=== PATIENT | female | born 1940 | race Caucasian/White ===

== ENCOUNTER 2018-03-09 10:22 | Inpatient (IN) | payer MEDICARE ==
[~2018-03-09] VITALS: Ht 154.9 cm; Wt 80.9 kg
[~2018-03-09 10:22] MED LIST: AVAPRO300 MG PO; BUSPIRONE HCL10 MG PO; CATAPRES0.1 MG; CEFTIN500 MG PO; CYMBALTA30 MG PO; DONEPEZIL HCL10 MG PO; OMEPRAZOLE20 MG PO; SIMVASTATIN40 MG PO; VALACYCLOVIR1000 MG
[2018-03-09] MEDS ORDERED: SODIUM CHLORIDE 0.9% 500ML 500 ML IV STA (10:24)
[2018-03-09] MEDS ORDERED: ASPIRIN 81 MG CHEW TAB PO ONE ×2 (10:30→14:15)
[2018-03-09 10:50] LABS: BASOPHILS % 0.6 % (0.0-1.0); EOSINOPHILS # (AUTO) 0.2 (0.0-0.4); EOSINOPHILS % 2.6 % (0.0-6.0); HEMOGLOBIN 11.1 g/dL (12.0-16.0); LYMPHOCYTES # (AUTO) 1.4 (1.0-3.2); MEAN CORPUSCULAR HEMOGLOBIN 30.2 pg (28-32); MEAN CORPUSCULAR HGB CONC 32.6 g/dL (31-35); MEAN CORPUSCULAR VOLUME 92.6 fL (81-99); MONOCYTES # (AUTO) 0.6 (0.2-0.8); MONOCYTES % 10.3 % (4.4-11.3); NEUTROPHILS % 64.2 % (38.7-80.0); PLATELET COUNT 312 x10e3/uL (140-360); RED BLOOD COUNT 3.67 x10e6/uL (3.6-5.1); RED CELL DISTRIBUTION WIDTH 13.1 % (11.7-14.4)
[2018-03-09 11:08] LABS: INR 0.84; PROTHROMBIN TIME 12.3 seconds (11.9-14.5)
[2018-03-09 11:09] LABS: PARTIAL THROMBOPLASTIN TIME 21.3 seconds (23.8-35.5)
--- NOTE | 2018-03-09 11:41 | Diagnostic Imaging Report ---
EXAMINATION: Head CT HISTORY: Syncope COMPARISON: Head CT on 10/19/2013 TECHNIQUE: Multidetector axial images were obtained without contrast from the foramen magnum to the vertex . The images were reconstructed using brain and bone algorithms. Thin section brain images were reformatted into coronal and sagittal planes. Intravenous contrast: None. Image quality: Motion/streaking artifact limits the evaluation of the skull base and posterior cranial fossa. Dose modulation, iterative reconstruction, and/or weight based adjustment of the mA/kV was utilized to reduce the radiation dose to as low as reasonably achievable. FINDINGS: Parenchyma: 1. Persistent mild chronic microvascular ischemic changes. 2. No mass or hemorrhage. No CT evidence of acute territorial vascular insult. Extra-axial spaces:No abnormal density. No extra-axial fluid collections Brain volume: Normal for age. Ventricles: No hydrocephalus or displacement. Arteries: No density suggestive of thrombus. Dural sinuses: No abnormal density. Extra-axial spaces: No abnormal density. Foramen magnum: No mass, Chiari malformation, or basilar invagination. Sella: No obvious mass. Paranasal/mastoid sinuses: Imaged portions unremarkable. Skull/Scalp: No lytic or blastic lesions. No fractures. IMPRESSION: 1. No acute intracranial hemorrhage or cortical infarct. 2. Persistent mild chronic microvascular ischemic changes. Signed by: Dr. Isadora Jameson M.D. on 03/09/2018 11:38 AM
[2018-03-09 11:45] LABS: ALANINE AMINOTRANSFERASE 27 IU/L (0-55); ALBUMIN 3.2 g/dL (3.5-5.0); ALBUMIN/GLOBULIN RATIO 1.1 (0.8-2.0); ALKALINE PHOSPHATASE 60 IU/L (40-150); BLOOD UREA NITROGEN 25 mg/dL (7-26); BUN/CREATININE RATIO 23 (6-25); CALCIUM 9.3 mg/dL (8.4-10.2); CARBON DIOXIDE 23 mmol/L (22-29); CHLORIDE 105 mmol/L (98-107); CREATINE KINASE 50 IU/L (29-168); CREATININE, SERUM 1.07 mg/dL (0.57-1.11); EST GLOMERULAR FILTRATION RATE 50 ML/MIN (60-); GLUCOSE 113 mg/dL (74-118); LIPASE 21 U/L (8-78); MAGNESIUM 1.9 MG/DL (1.3-2.1); SODIUM 141 mmol/L (136-145)
[2018-03-09] MEDS ORDERED: SODIUM CHLORIDE 0.9% 500ML 500 ML IV ONE (12:00)
[2018-03-09] MEDS ORDERED: VITAMIN E400 UNI1 PO (12:04)
[2018-03-09] MEDS ORDERED: SERTRALINE HCL50 MG PO (12:04)
[2018-03-09] MEDS ORDERED: ASPIR 8181 MG PO (12:04)
[2018-03-09] MEDS ORDERED: GABAPENTIN100 MG PO ×2 (12:05)
--- NOTE | 2018-03-09 12:08 | Diagnostic Imaging Report ---
Examination: Single AP view of the chest. COMPARISON: None. INDICATION: Altered mental status, passed out DISCUSSION: Lines/tubes: None. Lungs: The lungs are well inflated and clear. No pneumonia or pulmonary edema. Pleura: No pleural effusion or pneumothorax. Heart and mediastinum: The heart and the mediastinum are unremarkable. Bones and soft tissues: No acute bony abnormalities. IMPRESSION: 1. No acute cardiopulmonary abnormalities. Signed by: Dr. Perico Bridges M.D. on 03/09/2018 12:05 PM
[2018-03-09 12:18] LABS: BILIRUBIN,URINE NEGATIVE (NEGATIVE); CLARITY,URINE SL CLOUDY (CLEAR); COLOR,URINE YELLOW (YELLOW); KETONES,URINE NEGATIVE (NEGATIVE); LEUKOCYTE ESTERASE ,URINE 2+ (NEGATIVE); NITRITE,URINE NEGATIVE (NEGATIVE); PROTEIN,URINE DIPSTICK 1+ (NEGATIVE); URINE UROBILINOGEN 0.2 mg/dL (0.2 - 1)
[2018-03-09 12:21] LABS: BACTERIA,URINE MODERATE /HPF; EPITHELIAL CELLS,URINE MODERATE /LPF; WBC,URINE (MAN) >50 /HPF (0-5)
[2018-03-09 12:22] LABS: THYROID STIMULATING HORMONE 2.609 uIU/mL (0.350-4.940)
[2018-03-09] MEDS: CEFTRIAXONE SOD 1 GM VIAL IV SCH (13:00)
[2018-03-09] MEDS ORDERED: ONDANSETRON HCL INJ 2 MG/ML VIAL IV PRN (14:15)
[2018-03-09] MEDS: SODIUM CHLORIDE 0.9% 1000ML 1,000 ML IV SCH (15:04)
[2018-03-09 20:00] VITALS: BP 108/47
[2018-03-09 20:42] LABS: CREATINE KINASE 51 IU/L (29-168)
[2018-03-10] VITALS (8 sets, daily range): BP systolic 135–149; BP diastolic 61–65
[2018-03-10] MEDS: SODIUM CHLORIDE 0.9% 1000ML 1,000 ML IV SCH ×2 (03:15→17:16)
[2018-03-10 05:57] LABS: ALANINE AMINOTRANSFERASE 25 IU/L (0-55); ALBUMIN 2.8 g/dL (3.5-5.0); ALBUMIN/GLOBULIN RATIO 1.2 (0.8-2.0); ALKALINE PHOSPHATASE 51 IU/L (40-150); ANION GAP 12.2 mmol/L (8-16); BLOOD UREA NITROGEN 18 mg/dL (7-26); BUN/CREATININE RATIO 24 (6-25); CALCIUM 8.7 mg/dL (8.4-10.2); CARBON DIOXIDE 24 mmol/L (22-29); CHLORIDE 110 mmol/L (98-107); CREATINE KINASE 52 IU/L (29-168); CREATININE, SERUM 0.74 mg/dL (0.57-1.11); EST GLOMERULAR FILTRATION RATE > 60 ML/MIN (60-); GLUCOSE 95 mg/dL (74-118); POTASSIUM 4.2 mmol/L (3.5-5.1); SODIUM 142 mmol/L (136-145)
[2018-03-10 06:18] LABS: BASOPHILS % 0.5 % (0.0-1.0); EOSINOPHILS # (AUTO) 0.2 (0.0-0.4); EOSINOPHILS % 3.2 % (0.0-6.0); HEMATOCRIT 30.5 % (34.2-44.1); HEMOGLOBIN 9.5 g/dL (12.0-16.0); LYMPHOCYTES # (AUTO) 1.3 (1.0-3.2); LYMPHOCYTES % 21.3 % (18.0-39.1); MEAN CORPUSCULAR HEMOGLOBIN 29.8 pg (28-32); MEAN CORPUSCULAR HGB CONC 31.1 g/dL (31-35); MEAN CORPUSCULAR VOLUME 95.6 fL (81-99); MONOCYTES # (AUTO) 0.6 (0.2-0.8); MONOCYTES % 10.2 % (4.4-11.3); NEUTROPHILS % 64.3 % (38.7-80.0); PLATELET COUNT 249 x10e3/uL (140-360); RED BLOOD COUNT 3.19 x10e6/uL (3.6-5.1); RED CELL DISTRIBUTION WIDTH 13.2 % (11.7-14.4)
[2018-03-10] MEDS ORDERED: NON-FORMULARY MEDICATION (Donepezil Hcl 10 MG) PO SCH (09:00)
[2018-03-10] MEDS: ASPIRIN 81 MG CHEW TAB PO SCH (09:58)
[2018-03-10] MEDS: GABAPENTIN 100 MG CAP PO SCH (09:58)
[2018-03-10] MEDS: SERTRALINE HCL 50 MG TAB PO SCH (09:58)
[2018-03-10] MEDS: PANTOPRAZOLE SOD 40 MG TABEC PO SCH (09:58)
[2018-03-10] MEDS: DONEPEZIL HCL 5 MG TAB PO SCH (11:43)
[2018-03-10] MEDS: CEFTRIAXONE SOD 1 GM VIAL IV SCH (11:45)
--- NOTE | 2018-03-10 12:27 | History and Physical ---
PRIMARY CARE PHYSICIAN: . CHIEF COMPLAINT: Near passing out. HISTORY OF PRESENT ILLNESS: This is a 77-year-old woman with a history of dementia and presyncope, now [facility] History was obtained from the patient's daughter, who states that patient's son-in-law was with her at [facility]. Patient subsequently headed on to the chair while standing and put her head down as if she was okay. She did not respond and subsequently as he tried to place a chair behind her, patient sat down and almost passed out but did not lose consciousness. This occurred three or four more times and brought in to the hospital. Here this patient found to have urinary tract infection. Imaging have been negative to date. Today echocardiogram done was normal left ventricular ejection fraction. She is admitted for further evaluation and management. PAST MEDICAL HISTORY: Dementia, arthritis, bradycardia, shingles, GERD, and hypertension. PAST SURGICAL HISTORY: Knee surgery. ALLERGIES: PER ELECTRONIC MEDICAL RECORD. FAMILY HISTORY AND SOCIAL HISTORY: The patient is . She has 4 children. No alcohol, illicits or cigarettes. MEDICATIONS: Per electronic medical record. REVIEW OF SYSTEMS: Unreliable. PHYSICAL EXAMINATION VITAL SIGNS: Have been reviewed. GENERAL: A tired-appearing woman, resting in bed. HEENT: Anicteric. CARDIOVASCULAR: Normal S1 and S2. LUNGS: Moderate breath sounds. ABDOMEN: Soft, nontender, and nondistended. EXTREMITIES: No edema or calf tenderness. NEUROLOGIC: Alert and oriented x2. She moves all the extremities. SKIN: Dry. PSYCHIATRIC: Flat affect. LABS: Reviewed. MEDICATIONS: Reviewed. ASSESSMENT: This is a 77-year-old woman 1. Urinary tract infection. 2. Dementia. 3. Presyncope. 4. Hyperlipidemia. 5. Normocytic anemia. 6. Acute kidney injury. 7. Obesity. PLAN 1. Rehydrate the patient. 2. IV antibiotics. 3. Followup culture. 4. Might have a confusion at nighttime due to dementia. 5. Restart home medications. 6. Monitor closely overnight. Plan to discharge next day after she has been rehydrated and receive antibiotics and follow up culture. 7. Utilize Protonix and Lovenox for prophylaxis. Job#: [id number] ANGEL
[2018-03-10] MEDS ORDERED: ENOXAPARIN SOD INJ 40 MG/0.4 ML SYR SC SCH (17:00)
[2018-03-10] MEDS ORDERED: SIMVASTATIN 40 MG TAB PO SCH (21:00)
[2018-03-10] MEDS ORDERED: GABAPENTIN 100 MG CAP PO SCH (21:00)
[2018-03-11] VITALS: BP 142/57
[2018-03-11 05:10] VITALS: BP 151/60
[2018-03-11] MEDS ORDERED: KEFLEX500 MG PO (07:22)
[2018-03-11 07:56] VITALS: BP 149/55
[2018-03-11] MEDS: ASPIRIN 81 MG CHEW TAB PO SCH (08:08)
[2018-03-11] MEDS: DONEPEZIL HCL 5 MG TAB PO SCH (08:08)
[2018-03-11] MEDS: GABAPENTIN 100 MG CAP PO SCH (08:08)
[2018-03-11] MEDS: PANTOPRAZOLE SOD 40 MG TABEC PO SCH (08:08)
[2018-03-11] MEDS: SERTRALINE HCL 50 MG TAB PO SCH (08:08)
--- NOTE | 2018-03-11 08:24 | Discharge Summary ---
PRINCIPAL DIAGNOSES 1. Urinary tract infection. 2. Dementia. 3. Presyncope. 4. Hyperlipidemia. 5. Normocytic anemia. 6. Acute kidney injury. 7. Obesity. SECONDARY DIAGNOSIS: Dementia. CHIEF COMPLAINT: Near passing out. BRIEF HISTORY: Patient is a 77-year-old with near passing out. Please refer to H\T\P for further details. HOSPITAL COURSE: Patient was found to have urinary tract infection, started on antibiotic ceftriaxone. She had gram-negative rods in urine. Patient's daughter has continued to request discharge home including the patient has also requested discharge home. There is no leukocytosis, fever, or hypotension. Patient can be transitioned home with Keflex and follow up outpatient with Dr. Shi for continued care. She also had presyncope related to the urinary tract infection, normocytic anemia, and acute kidney injury, which has resolved and obesity. DISCHARGE MEDICATIONS: Per electronic medical records. Discharge medications include Keflex 500 mg p.o. q.12h. for 5 days. FOLLOWUP INSTRUCTIONS: Follow up with primary care physician in one week. CONDITION ON DISCHARGE: Stable and improved. DISCHARGE LOCATION: Home with physical therapy. ZAINAB SEGOVIA MD Job#: [id number] PARTHA
--- OUTSIDE RECORDS SUMMARY | 2018-03-21 10:46 | XMS REPORT ---
Author [facility] Address Unknown Phone Unavailable Care Team Providers Care Stem Roller Name Role Phone Gilberto DAWSON Unavailable Unavailable Problems This patient has no known problems. Allergies, Adverse Reactions, Alerts This patient has no known allergies or adverse reactions. Medications This patient has no known medications. Results Test Description Test Time Test Comments Text Results Atomic Results Result Comments CHEST SINGLE (PORTABLE) 2018-03-09 12:04:00 [place] [address] Patient Name: SHERICE ALLEN MR #: [id number] : 1940 Age/Sex: 77/F Req #: [id number] Adm Physician: Ordered by: JASWANT GILLIS SURGICAL SUPPLY ASSISTANT Report #: [id number] Location: ER Room/Bed: Procedure: [id number] DX/CHEST SINGLE (PORTABLE) Exam Date: Exam Time: REPORT STATUS: Signed Examination: Single AP view of the chest. COMPARISON: None. INDICATION: Altered mental status, passed out DISCUSSION: Lines/tubes: None. Lungs: The lungs are well inflated and clear. No pneumonia or pulmonary edema. Pleura: No pleural effusion or pneumothorax. Heart and mediastinum: The heart and the mediastinum are unremarkable. Bones and soft tissues: No acute bony abnormalities. IMPRESSION: 1. No acute cardiopulmonary abnormalities. Signed by: Dr. Kofi Hamlin M.D. on 03/09/2018 12:05 PM Dictated By: KOFI HAMLIN MD 1205 Transcribed By: IGLESIA on 03/09/18 1205 COPY TO: JASWANT GILLIS NP CT BRAIN WO 2018-03-09 11:37:00 [place] [address] Patient Name: SHERICE ALLEN MR #: [id number] : 1940 Age/Sex: 77/F Req #: [id number] Adm Physician: Ordered by: JASWANT GILLIS NP Report #: [id number] Location: ER Room/Bed: Procedure: [id number] CT/CT BRAIN WO Exam Date: 03/09/18 Exam Time: 1110 REPORT STATUS: Signed EXAMINATION: Head CT HISTORY: Syncope COMPARISON: Head CT on 10/19/2013 TECHNIQUE: Multidetector axial images were obtained without contrast from the foramen magnum to the vertex . The images were reconstructed using brain and bone algorithms. Thin section brain images were reformatted into coronal and sagittal planes. Intravenous contrast: None. Image quality: Motion/streaking artifact limits the evaluation of the skull base and posterior cranial fossa. Dose modulation, iterative reconstruction, and/or weight based adjustment of the mA/kV was utilized to reduce the radiation dose to as low as reasonably achievable. FINDINGS: Parenchyma: 1. Persistent mild chronic microvascular ischemic changes. 2. No mass or hemorrhage. No CT evidence of acute territorial vascular insult. Extra-axial spaces:No abnormal density. No extra-axial fluid collections Brain volume: Normal for age. Ventricles: No hydrocephalus or displacement. Arteries: No density suggestive of thrombus. Dural sinuses: No abnormal density. Extra-axial spaces: No abnormal density. Foramen magnum: No mass, Chiari malformation, or basilar invagination. Sella: No obvious mass. Paranasal/mastoid sinuses: Imaged portions unremarkable. Skull/Scalp: No lytic or blastic lesions. No fractures. IMPRESSION: 1. No acute intracranial hemorrhage or cortical infarct. 2. Persistent mild chronic microvascular ischemic changes. Signed by: Dr. Deb Jameson M.D. on 03/09/2018 11:38 AM Dictated By: DEB JAMESON MD 1138 Transcribed By: IGLESIA on 03/09/181137 COPY TO: JASWANT GILLIS NP
== END 2018-03-11 10:39 | disposition home or self-care (01) | DRG 683 ==
LOC: ER 10:22 → ERHOLD 14:04 → MED/SURG3 17:06
PROVIDERS: ADMIT Internal Medicine; ATTEND Internal Medicine
DX: N17.9 Acute kidney failure, unspecified (principal); N39.0 Urinary tract infection, site not specified; F03.90 Unspecified dementia, unspecified severity, without behavioral disturbance, psychotic disturbance, mood disturbance, and anxiety; E78.5 Hyperlipidemia, unspecified; E66.9 Obesity, unspecified; Z68.33 Body mass index [BMI] 33.0-33.9, adult; D64.9 Anemia, unspecified; B96.89 Other specified bacterial agents as the cause of diseases classified elsewhere
CPT/HCPCS: 36415; 51700; 70450; 71045; 80053; 81001; 82550; 82553; 83605; 83690; 83735; 84443; 84484; 85025; 85610; 85730; 87086; 87186; 93005; 93306; 99284; J0696; J1650; J7030; J7040

== ENCOUNTER 2021-06-22 16:25 | Emergency (ER) | payer MEDICARE ==
[~2021-06-22] VITALS: Ht 152.4 cm; Wt 72.6 kg
[~2021-06-22 16:25] MED LIST changes: +ASPIR 8181 MG PO; +GABAPENTIN100 MG PO; +KEFLEX500 MG PO; +SERTRALINE HCL50 MG PO; +VITAMIN E400 UNI1 PO
[2021-06-22] MEDS ORDERED: CEFTRIAXONE 1 GM VIAL IV ONE (17:00)
[2021-06-22] MEDS ORDERED: CEFDINIR300 MG PO (17:07)
[2021-06-22] MEDS ORDERED: CEFTRIAXONE 1 GM VIAL ONE (17:18)
[2021-06-22] MEDS ORDERED: CEFTRIAXONE 1 GM in SODIUM CHLORIDE 0.9% 50ML 50 ML IV ONE (17:30)
== END 2021-06-22 17:36 | disposition home or self-care (01) ==
LOC: FSED 16:32
DX: R41.82 Altered mental status, unspecified (principal); N39.0 Urinary tract infection, site not specified; F03.90 Unspecified dementia, unspecified severity, without behavioral disturbance, psychotic disturbance, mood disturbance, and anxiety; I10 Essential (primary) hypertension; K21.9 Gastro-esophageal reflux disease without esophagitis; F41.9 Anxiety disorder, unspecified; E78.00 Pure hypercholesterolemia, unspecified
CPT/HCPCS: 80053; 81003; 85025; 99283; J0696

== ENCOUNTER 2021-06-26 12:39 | Emergency (ER) | payer MEDICARE ==
[~2021-06-26] VITALS: Ht 154.9 cm; Wt 72.6 kg
[~2021-06-26 12:39] MED LIST changes: +CEFDINIR300 MG PO
[2021-06-26] MEDS ORDERED: SODIUM CHLORIDE 0.9% 1000ML 1,000 ML IV SCH (13:00)
[2021-06-26] MEDS ORDERED: CEFTRIAXONE 1 GM VIAL IM ONE (13:00)
[2021-06-26] MEDS ORDERED: CEFTRIAXONE 1 GM in SODIUM CHLORIDE 0.9% 50ML 50 ML IV ONE (13:15)
[2021-06-26] MEDS ORDERED: SODIUM CHLORIDE 0.9% 1000ML 500 ML IV SCH (13:59)
[2021-06-26 14:46] LABS: ALBUMIN 3.4 g/dL (3.5-5.0); ANION GAP 15.3 mmol/L (8-16); CALCIUM 9.7 mg/dL (8.4-10.2); CREATININE, SERUM 0.84 mg/dL (0.57-1.11); POTASSIUM 4.3 mmol/L (3.5-5.1)
[2021-06-26 14:59] LABS: BASOPHILS % 0.6 % (0.0-1.0); EOSINOPHILS # (AUTO) 0.4 (0.0-0.4); EOSINOPHILS % 5.3 % (0.0-6.0); HEMATOCRIT 42.5 % (34.2-44.1); HEMOGLOBIN 13.1 g/dL (12.0-16.0); LYMPHOCYTES # (AUTO) 1.3 (1.0-3.2); LYMPHOCYTES % 20.1 % (18.0-39.1); MEAN CORPUSCULAR HEMOGLOBIN 32.3 pg (28-32); MEAN CORPUSCULAR HGB CONC 30.8 g/dL (31-35); MEAN CORPUSCULAR VOLUME 104.7 fL (81-99); MONOCYTES # (AUTO) 0.7 (0.2-0.8); MONOCYTES % 10.3 % (4.4-11.3); NEUTROPHILS # (AUTO) 4.2 (2.1-6.9); NEUTROPHILS % 63.5 % (38.7-80.0); PLATELET COUNT 276 x10e3/uL (140-360); RED BLOOD COUNT 4.06 x10e6/uL (3.6-5.1)
[2021-06-26 15:28] LABS: CLARITY,URINE CLEAR (CLEAR); COLOR,URINE YELLOW (YELLOW); KETONES,URINE NEGATIVE (NEGATIVE); LEUKOCYTE ESTERASE ,URINE NEGATIVE (NEGATIVE); NITRITE,URINE NEGATIVE (NEGATIVE); PROTEIN,URINE DIPSTICK NEGATIVE (NEGATIVE); URINE UROBILINOGEN 0.2 mg/dL (0.2 - 1)
[2021-06-26 15:39] LABS: BACTERIA,URINE FEW /HPF; EPITHELIAL CELLS,URINE FEW /LPF; RBC,URINE 0-5 /HPF (0-5); WBC,URINE (MAN) 21-50 /HPF (0-5)
[2021-06-26 18:17] VITALS: BP 133/76
== END 2021-06-26 18:00 | disposition home or self-care (01) ==
LOC: ER 12:46
DX: N39.0 Urinary tract infection, site not specified (principal); F03.90 Unspecified dementia, unspecified severity, without behavioral disturbance, psychotic disturbance, mood disturbance, and anxiety; I10 Essential (primary) hypertension; K21.9 Gastro-esophageal reflux disease without esophagitis; F41.9 Anxiety disorder, unspecified; E78.00 Pure hypercholesterolemia, unspecified
CPT/HCPCS: 36415; 71045; 80053; 81001; 83605; 84484; 85025; 87040; 87086; 93005; 99284; J0696; J7030

== ENCOUNTER 2021-12-28 22:02 | Inpatient (IN) | payer MEDICARE ==
[~2021-12-28] VITALS: Ht 154.9 cm; Wt 72.6 kg
[2021-12-28 23:16] LABS: BASOPHILS % 0.7 % (0.0-1.0); EOSINOPHILS # (AUTO) 0.1 (0.0-0.4); EOSINOPHILS % 2.2 % (0.0-6.0); HEMATOCRIT 36.6 % (34.2-44.1); HEMOGLOBIN 11.7 g/dL (12.0-16.0); LYMPHOCYTES # (AUTO) 0.9 (1.0-3.2); LYMPHOCYTES % 14.8 % (18.0-39.1); MEAN CORPUSCULAR HEMOGLOBIN 31.7 pg (28-32); MEAN CORPUSCULAR VOLUME 99.2 fL (81-99); MONOCYTES # (AUTO) 0.7 (0.2-0.8); MONOCYTES % 11.4 % (4.4-11.3); NEUTROPHILS # (AUTO) 4.1 (2.1-6.9); NEUTROPHILS % 70.4 % (38.7-80.0); PLATELET COUNT 228 x10e3/uL (140-360); RED BLOOD COUNT 3.69 x10e6/uL (3.6-5.1)
[2021-12-28 23:38] LABS: ALANINE AMINOTRANSFERASE 13 IU/L (0-55); ALKALINE PHOSPHATASE 64 IU/L (40-150); ANION GAP 14.9 mmol/L (8-16); BLOOD UREA NITROGEN 36 mg/dL (7-26); BUN/CREATININE RATIO 40 (6-25); CALCIUM 8.4 mg/dL (8.4-10.2); CARBON DIOXIDE 26 mmol/L (22-29); CHLORIDE 106 mmol/L (98-107); CREATINE KINASE 44 IU/L (29-168); GLUCOSE 92 mg/dL (74-118); POTASSIUM 3.9 mmol/L (3.5-5.1); SODIUM 143 mmol/L (136-145)
[2021-12-29] VITALS (7 sets, daily range): BP systolic 132–135; BP diastolic 56–75
[2021-12-29 02:54] LABS: CLARITY,URINE CLOUDY (CLEAR); COLOR,URINE YELLOW (YELLOW); KETONES,URINE NEGATIVE (NEGATIVE); LEUKOCYTE ESTERASE ,URINE 1+ (NEGATIVE); NITRITE,URINE NEGATIVE (NEGATIVE); PROTEIN,URINE DIPSTICK TRACE (NEGATIVE); URINE UROBILINOGEN 0.2 mg/dL (0.2 - 1)
[2021-12-29 02:58] LABS: WBC,URINE (MAN) >50 /HPF (0-5)
[2021-12-29 02:59] LABS: BACTERIA,URINE MANY /HPF; EPITHELIAL CELLS,URINE MANY /LPF; RENAL EPITHELIAL CELLS,URINE MODERATE; TRANSITIONAL EPI CELLS,URINE MODERATE
[2021-12-29] MEDS: SODIUM CHLORIDE 0.9% 1000ML 1,000 ML IV SCH ×3 (05:17→16:45)
[2021-12-29 06:33] LABS: CREATINE KINASE 48 IU/L (29-168)
[2021-12-29 07:56] LABS: BASOPHILS % 0.4 % (0.0-1.0); EOSINOPHILS # (AUTO) 0.1 (0.0-0.4); EOSINOPHILS % 2.4 % (0.0-6.0); HEMATOCRIT 38.7 % (34.2-44.1); HEMOGLOBIN 11.8 g/dL (12.0-16.0); LYMPHOCYTES # (AUTO) 1.1 (1.0-3.2); MEAN CORPUSCULAR HEMOGLOBIN 31.1 pg (28-32); MEAN CORPUSCULAR HGB CONC 30.5 g/dL (31-35); MEAN CORPUSCULAR VOLUME 102.1 fL (81-99); MONOCYTES # (AUTO) 0.9 (0.2-0.8); MONOCYTES % 16.2 % (4.4-11.3); NEUTROPHILS # (AUTO) 3.3 (2.1-6.9); PLATELET COUNT 215 x10e3/uL (140-360); RED BLOOD COUNT 3.79 x10e6/uL (3.6-5.1)
[2021-12-29 08:14] LABS: ALBUMIN 2.9 g/dL (3.5-5.0); ANION GAP 12.7 mmol/L (8-16); CALCIUM 8.5 mg/dL (8.4-10.2); CREATININE, SERUM 0.82 mg/dL (0.57-1.11); POTASSIUM 3.7 mmol/L (3.5-5.1)
[2021-12-29] MEDS: ASPIRIN 81 MG CHEW TAB PO SCH (09:50)
[2021-12-29] MEDS: IRBESARTAN 150 MG TAB PO SCH (09:50)
[2021-12-29] MEDS: GABAPENTIN 100 MG CAP PO SCH (09:51)
[2021-12-29] MEDS: BUSPIRONE HCL 10 MG TABLET PO SCH (09:51)
[2021-12-29] MEDS: PANTOPRAZOLE SOD 40 MG TABEC PO SCH (09:58)
[2021-12-29] MEDS: SERTRALINE HCL 50 MG TAB PO SCH (09:58)
[2021-12-29] MEDS ORDERED: BEBTELOVIMAB 175 MG INJ IV ONE (13:45)
[2021-12-29 13:59] LABS: CREATINE KINASE 60 IU/L (29-168)
[2021-12-29] MEDS: SIMVASTATIN 40 MG TAB PO SCH (20:00)
[2021-12-29] MEDS ORDERED: GABAPENTIN 100 MG CAP PO SCH (21:00)
[2021-12-30] VITALS (8 sets, daily range): BP systolic 89–139; BP diastolic 43–97
[2021-12-30] MEDS: SODIUM CHLORIDE 0.9% 1000ML 1,000 ML IV SCH ×4 (01:24→21:00)
[2021-12-30 05:56] LABS: BASOPHILS % 0.6 % (0.0-1.0); EOSINOPHILS # (AUTO) 0.2 (0.0-0.4); EOSINOPHILS % 3.9 % (0.0-6.0); HEMATOCRIT 35.8 % (34.2-44.1); HEMOGLOBIN 11.5 g/dL (12.0-16.0); LYMPHOCYTES # (AUTO) 1.5 (1.0-3.2); LYMPHOCYTES % 28.9 % (18.0-39.1); MEAN CORPUSCULAR HEMOGLOBIN 31.6 pg (28-32); MEAN CORPUSCULAR HGB CONC 32.1 g/dL (31-35); MEAN CORPUSCULAR VOLUME 98.4 fL (81-99); MONOCYTES # (AUTO) 0.7 (0.2-0.8); MONOCYTES % 12.6 % (4.4-11.3); NEUTROPHILS # (AUTO) 2.8 (2.1-6.9); NEUTROPHILS % 53.8 % (38.7-80.0); PLATELET COUNT 215 x10e3/uL (140-360); RED BLOOD COUNT 3.64 x10e6/uL (3.6-5.1); RED CELL DISTRIBUTION WIDTH 12.4 % (11.7-14.4)
[2021-12-30 06:31] LABS: ALBUMIN 2.8 g/dL (3.5-5.0); ANION GAP 14.1 mmol/L (8-16); CALCIUM 7.8 mg/dL (8.4-10.2); CREATININE, SERUM 0.74 mg/dL (0.57-1.11); POTASSIUM 4.1 mmol/L (3.5-5.1)
[2021-12-30] MEDS: ASPIRIN 81 MG CHEW TAB PO SCH (08:37)
[2021-12-30] MEDS: BUSPIRONE HCL 10 MG TABLET PO SCH (08:38)
[2021-12-30] MEDS: IRBESARTAN 150 MG TAB PO SCH (08:38)
[2021-12-30] MEDS: SERTRALINE HCL 50 MG TAB PO SCH (08:38)
[2021-12-30] MEDS: GABAPENTIN 100 MG CAP PO SCH (08:38)
[2021-12-30] MEDS: PANTOPRAZOLE SOD 40 MG TABEC PO SCH (08:38)
[2021-12-30] MEDS ORDERED: DONEPEZIL HCL 5 MG TAB PO SCH (09:00)
[2021-12-30 09:14] LABS: ANION GAP 17.2 mmol/L (8-16); CREATININE, SERUM 0.74 mg/dL (0.57-1.11); MAGNESIUM 1.7 MG/DL (1.3-2.1); POTASSIUM 4.2 mmol/L (3.5-5.1)
[2021-12-30] MEDS ORDERED: NAMENDA10 MG PO ×2 (18:26)
[2021-12-30] MEDS ORDERED: QUETIAPINE FUMA50 MG PO (18:26)
[2021-12-30] MEDS ORDERED: QUETIAPINE FUM100 MG PO (18:26)
[2021-12-30] MEDS: SIMVASTATIN 40 MG TAB PO SCH (20:35)
[2021-12-30] MEDS: MEMANTINE 10 MG TAB PO SCH (20:35)
[2021-12-30] MEDS: QUETIAPINE FUMARATE 100 MG TAB PO SCH (20:35)
[2021-12-31] VITALS (7 sets, daily range): BP systolic 101–132; BP diastolic 51–106
[2021-12-31] MEDS: SODIUM CHLORIDE 0.9% 1000ML 1,000 ML IV SCH ×3 (05:05→22:04)
[2021-12-31] MEDS: PANTOPRAZOLE SOD 40 MG TABEC PO SCH (08:41)
[2021-12-31] MEDS: ASPIRIN 81 MG CHEW TAB PO SCH (08:41)
[2021-12-31] MEDS: SERTRALINE HCL 50 MG TAB PO SCH (08:41)
[2021-12-31] MEDS: IRBESARTAN 150 MG TAB PO SCH (08:41)
[2021-12-31] MEDS ORDERED: QUETIAPINE FUMARATE 25 MG TAB PO SCH (09:00)
[2021-12-31] MEDS ORDERED: MEMANTINE 10 MG TAB PO SCH (09:00)
[2021-12-31 10:07] LABS: ANION GAP 10.8 mmol/L (8-16); CALCIUM 7.9 mg/dL (8.4-10.2); CREATININE, SERUM 0.73 mg/dL (0.57-1.11); MAGNESIUM 1.8 MG/DL (1.3-2.1); POTASSIUM 3.8 mmol/L (3.5-5.1)
[2021-12-31] MEDS: MEMANTINE 10 MG TAB PO SCH (22:04)
[2021-12-31] MEDS: SIMVASTATIN 40 MG TAB PO SCH (22:04)
[2021-12-31] MEDS: QUETIAPINE FUMARATE 100 MG TAB PO SCH (22:04)
[2022-01-01 03:45] VITALS: BP 119/56
[2022-01-01 04:17] VITALS: BP 119/56
[2022-01-01] MEDS: SODIUM CHLORIDE 0.9% 1000ML 1,000 ML IV SCH (05:55)
[2022-01-01 08:00] VITALS: BP 136/72
[2022-01-01] MEDS ORDERED: CEPHALEXIN500 MG PO (08:14)
[2022-01-01 10:34] VITALS: BP 136/72
[2022-01-01] MEDS ORDERED: CEPHALEXIN MONOHYDRATE 250 MG CAP PO SCH (12:00)
[2022-01-01 12:11] VITALS: BP 99/77
== END 2022-01-01 12:10 | DRG 178 ==
LOC: ER 22:54 → ERHOLD 12-29 02:32 → MED/SURG3 12-29 13:38 → OBSVTOIN 12-30 08:51
PROVIDERS: ADMIT Internal Medicine; ATTEND Internal Medicine
DX: U07.1 COVID-19 (principal); F05 Delirium due to known physiological condition; N30.00 Acute cystitis without hematuria; F03.90 Unspecified dementia, unspecified severity, without behavioral disturbance, psychotic disturbance, mood disturbance, and anxiety; I10 Essential (primary) hypertension; K21.9 Gastro-esophageal reflux disease without esophagitis; F39 Unspecified mood [affective] disorder; B96.20 Unspecified Escherichia coli [E. coli] as the cause of diseases classified elsewhere; R44.1 Visual hallucinations; F41.9 Anxiety disorder, unspecified
CPT/HCPCS: 36415; 51700; 70450; 71045; 80048; 80053; 81001; 82550; 82553; 82948; 83735; 84484; 85025; 87086; 87186; 93005; 93306; 94799; 97139; 99251; 99285; G0378; J2543; J7030

== ENCOUNTER 2022-02-16 11:35 | Emergency (ER) | payer MEDICARE ==
[~2022-02-16] VITALS: Ht 154.9 cm; Wt 72.6 kg
[~2022-02-16 11:35] MED LIST changes: +CEPHALEXIN500 MG PO; +NAMENDA10 MG PO; +QUETIAPINE FUM100 MG PO; +QUETIAPINE FUMA50 MG PO
[2022-02-16] MEDS ORDERED: CLARITIN-D 241 EACH PO (12:36)
[2022-02-16] MEDS ORDERED: ELLURA200 MG PEG (12:36)
[2022-02-16] MEDS ORDERED: VITAMIN B122500 MCG PO (12:36)
[2022-02-16] MEDS ORDERED: OS-CAL 500+D T1 EACH PO (12:36)
[2022-02-16] MEDS ORDERED: VITAMIN E400 UNI1 PO (12:36)
[2022-02-16] MEDS ORDERED: VITAMIN D325 MCG PO (12:36)
[2022-02-16] MEDS ORDERED: AZO CRANBERRY250 MG PO (12:36)
[2022-02-16] MEDS ORDERED: SODIUM CHLORIDE 0.9% 1000ML 1,000 ML IV STA (12:36)
[2022-02-16] MEDS ORDERED: VITAMIN C500 MG PO (12:36)
[2022-02-16] MEDS ORDERED: zinc PO (12:36)
[2022-02-16 12:50] LABS: BASOPHILS % 0.4 % (0.0-1.0); EOSINOPHILS # (AUTO) 0.2 (0.0-0.4); EOSINOPHILS % 2.2 % (0.0-6.0); HEMOGLOBIN 12.1 g/dL (12.0-16.0); LYMPHOCYTES # (AUTO) 1.1 (1.0-3.2); LYMPHOCYTES % 12.1 % (18.0-39.1); MEAN CORPUSCULAR HEMOGLOBIN 31.5 pg (28-32); MEAN CORPUSCULAR VOLUME 101.6 fL (81-99); MONOCYTES # (AUTO) 0.6 (0.2-0.8); MONOCYTES % 6.4 % (4.4-11.3); NEUTROPHILS # (AUTO) 7.2 (2.1-6.9); NEUTROPHILS % 78.6 % (38.7-80.0); PLATELET COUNT 328 x10e3/uL (140-360); RED BLOOD COUNT 3.84 x10e6/uL (3.6-5.1); RED CELL DISTRIBUTION WIDTH 12.3 % (11.7-14.4)
[2022-02-16 13:00] LABS: CLARITY,URINE CLEAR (CLEAR); COLOR,URINE YELLOW (YELLOW); KETONES,URINE NEGATIVE (NEGATIVE); LEUKOCYTE ESTERASE ,URINE MODERATE (NEGATIVE); NITRITE,URINE POSITIVE (NEGATIVE); PROTEIN,URINE DIPSTICK NEGATIVE (NEGATIVE); URINE UROBILINOGEN 0.2 mg/dL (0.2 - 1)
[2022-02-16 13:17] LABS: ALANINE AMINOTRANSFERASE 14 IU/L (0-55); ALBUMIN 3.3 g/dL (3.5-5.0); ALKALINE PHOSPHATASE 74 IU/L (40-150); BLOOD UREA NITROGEN 22 mg/dL (7-26); BUN/CREATININE RATIO 26 (6-25); CALCIUM 9.8 mg/dL (8.4-10.2); CARBON DIOXIDE 28 mmol/L (22-29); CHLORIDE 104 mmol/L (98-107); CREATINE KINASE 26 IU/L (29-168); CREATININE, SERUM 0.85 mg/dL (0.57-1.11); GLUCOSE 108 mg/dL (74-118); MAGNESIUM 2.1 MG/DL (1.3-2.1); SODIUM 142 mmol/L (136-145)
[2022-02-16 13:24] LABS: WBC,URINE (MAN) >50 /HPF (0-5)
[2022-02-16 13:25] LABS: BACTERIA,URINE MANY /HPF; EPITHELIAL CELLS,URINE FEW /LPF
[2022-02-16] MEDS ORDERED: CEFUROXIME250 MG PO (14:06)
== END 2022-02-16 14:31 | disposition home or self-care (01) ==
LOC: ER 11:59
DX: N39.0 Urinary tract infection, site not specified (principal); G30.9 Alzheimer's disease, unspecified; F02.80 Dementia in other diseases classified elsewhere, unspecified severity, without behavioral disturbance, psychotic disturbance, mood disturbance, and anxiety; Z87.440 Personal history of urinary (tract) infections; I10 Essential (primary) hypertension; K21.9 Gastro-esophageal reflux disease without esophagitis
CPT/HCPCS: 36415; 71045; 80053; 81001; 82550; 82553; 83735; 84484; 85025; 87086; 93005; 99284; J0696; J7030; 87186

== ENCOUNTER 2022-06-24 11:44 | Inpatient (IN) | payer MEDICARE ==
[~2022-06-24] VITALS: Ht 157.5 cm; Wt 65.8 kg
[~2022-06-24 11:44] MED LIST changes: +AZO CRANBERRY250 MG PO; +CEFUROXIME250 MG PO; +CLARITIN-D 241 EACH PO; +ELLURA200 MG PEG; +OS-CAL 500+D T1 EACH PO; +VITAMIN B122500 MCG PO; +VITAMIN C500 MG PO; +VITAMIN D325 MCG PO; +zinc PO
[2022-06-24] MEDS ORDERED: SODIUM CHLORIDE 0.9% 1000ML 1,000 ML IV ONE (12:15)
[2022-06-24 13:06] LABS: BASOPHILS % 0.3 % (0.0-1.0); EOSINOPHILS # (AUTO) 0.1 (0.0-0.4); EOSINOPHILS % 1.6 % (0.0-6.0); HEMATOCRIT 42.9 % (34.2-44.1); HEMOGLOBIN 12.6 g/dL (12.0-16.0); LYMPHOCYTES # (AUTO) 1.2 (1.0-3.2); LYMPHOCYTES % 13.3 % (18.0-39.1); MEAN CORPUSCULAR HEMOGLOBIN 31.7 pg (28-32); MEAN CORPUSCULAR HGB CONC 29.4 g/dL (31-35); MEAN CORPUSCULAR VOLUME 108.1 fL (81-99); MONOCYTES # (AUTO) 0.7 (0.2-0.8); MONOCYTES % 8.2 % (4.4-11.3); NEUTROPHILS # (AUTO) 6.7 (2.1-6.9); NEUTROPHILS % 76.3 % (38.7-80.0); PLATELET COUNT 316 x10e3/uL (140-360); RED BLOOD COUNT 3.97 x10e6/uL (3.6-5.1); RED CELL DISTRIBUTION WIDTH 14.2 % (11.7-14.4)
[2022-06-24 13:11] LABS: CLARITY,URINE CLOUDY (CLEAR); COLOR,URINE YELLOW (YELLOW)
[2022-06-24 13:12] LABS: KETONES,URINE TRACE (NEGATIVE); LEUKOCYTE ESTERASE ,URINE LARGE (NEGATIVE); NITRITE,URINE NEGATIVE (NEGATIVE); PROTEIN,URINE DIPSTICK 1+ (NEGATIVE); URINE UROBILINOGEN 0.2 mg/dL (0.2 - 1)
[2022-06-24 13:21] LABS: BACTERIA,URINE MODERATE /HPF; EPITHELIAL CELLS,URINE FEW /LPF; RBC,URINE >50 /HPF (0-5); WBC,URINE (MAN) >50 /HPF (0-5)
[2022-06-24 13:32] LABS: ALBUMIN 3.5 g/dL (3.5-5.0); ANION GAP 21.7 mmol/L (8-16); CALCIUM 10.1 mg/dL (8.4-10.2); CREATININE, SERUM 2.14 mg/dL (0.57-1.11); POTASSIUM 4.7 mmol/L (3.5-5.1)
[2022-06-24] MEDS ORDERED: LACTATED RINGER'S 1,000 ML INJ ONE (14:45)
[2022-06-24] MEDS ORDERED: ONDANSETRON HCL INJ 2MG/ML 2ML 2 MG/ML VIAL IV PRN (14:45)
[2022-06-24 16:23] VITALS: BP 129/51
[2022-06-24 16:40] VITALS: BP 122/68
[2022-06-24 20:00] VITALS: BP 120/51
[2022-06-24] MEDS ORDERED: DOCUSATE SODIUM 100 MG CAP PO PRN (20:15)
[2022-06-24] MEDS ORDERED: ACETAMINOPHEN 325 MG TAB PO PRN (20:15)
[2022-06-24] MEDS: SODIUM CHLORIDE 0.45% 1,000 ML IV SCH (20:52)
[2022-06-24 21:00] VITALS: BP 120/51
[2022-06-25] VITALS (8 sets, daily range): BP systolic 109–152; BP diastolic 46–77
[2022-06-25 05:04] LABS: BASOPHILS # (AUTO) 0.1 (0.0-0.1); BASOPHILS % 0.6 % (0.0-1.0); EOSINOPHILS # (AUTO) 0.4 (0.0-0.4); EOSINOPHILS % 4.2 % (0.0-6.0); HEMATOCRIT 34.9 % (34.2-44.1); LYMPHOCYTES # (AUTO) 1.9 (1.0-3.2); LYMPHOCYTES % 21.8 % (18.0-39.1); MEAN CORPUSCULAR HEMOGLOBIN 31.6 pg (28-32); MEAN CORPUSCULAR HGB CONC 31.5 g/dL (31-35); MEAN CORPUSCULAR VOLUME 100.3 fL (81-99); MONOCYTES # (AUTO) 0.8 (0.2-0.8); MONOCYTES % 9.4 % (4.4-11.3); NEUTROPHILS # (AUTO) 5.4 (2.1-6.9); NEUTROPHILS % 63.6 % (38.7-80.0); PLATELET COUNT 295 x10e3/uL (140-360); RED BLOOD COUNT 3.48 x10e6/uL (3.6-5.1); RED CELL DISTRIBUTION WIDTH 13.8 % (11.7-14.4)
[2022-06-25 05:24] LABS: ANION GAP 17.2 mmol/L (8-16); CALCIUM 9.1 mg/dL (8.4-10.2); CREATININE, SERUM 1.49 mg/dL (0.57-1.11); POTASSIUM 4.2 mmol/L (3.5-5.1)
[2022-06-25 05:38] LABS: PHOSPHORUS 3.7 MG/DL (2.3-4.7)
[2022-06-25] MEDS: PANTOPRAZOLE SOD 40 MG TABEC PO SCH (08:45)
[2022-06-25] MEDS: SIMVASTATIN 40 MG TAB PO SCH (08:45)
[2022-06-25] MEDS: SERTRALINE HCL 50 MG TAB PO SCH (08:45)
[2022-06-25] MEDS: SODIUM CHLORIDE 0.45% 1,000 ML IV SCH ×2 (08:56→22:55)
[2022-06-25] MEDS ORDERED: ONDANSETRON HCL 4 MG ORAL DISINTEGRATING TAB PO PRN (10:00)
[2022-06-26 04:00] VITALS: BP 121/53
[2022-06-26 06:14] LABS: MAGNESIUM 1.7 MG/DL (1.3-2.1); PHOSPHORUS 2.9 MG/DL (2.3-4.7)
[2022-06-26 08:20] VITALS: BP 114/76
[2022-06-26] MEDS: SIMVASTATIN 40 MG TAB PO SCH (09:00)
[2022-06-26] MEDS: PANTOPRAZOLE SOD 40 MG TABEC PO SCH (09:00)
[2022-06-26] MEDS: SERTRALINE HCL 50 MG TAB PO SCH (09:00)
[2022-06-26 11:51] VITALS: BP 111/53
[2022-06-26] MEDS: SODIUM CHLORIDE 0.45% 1,000 ML IV SCH (12:59)
[2022-06-26 20:00] VITALS: BP 130/50
[2022-06-26] MEDS: MEMANTINE 10 MG TAB PO SCH (20:49)
[2022-06-26] MEDS: QUETIAPINE FUMARATE 100 MG TAB PO SCH (20:49)
[2022-06-27] VITALS (7 sets, daily range): BP systolic 103–146; BP diastolic 49–86
[2022-06-27] MEDS: SODIUM CHLORIDE 0.45% 1,000 ML IV SCH ×2 (01:35→13:52)
[2022-06-27 05:43] LABS: BASOPHILS % 0.4 % (0.0-1.0); EOSINOPHILS # (AUTO) 0.4 (0.0-0.4); EOSINOPHILS % 4.8 % (0.0-6.0); HEMATOCRIT 30.4 % (34.2-44.1); HEMOGLOBIN 9.8 g/dL (12.0-16.0); LYMPHOCYTES # (AUTO) 1.6 (1.0-3.2); LYMPHOCYTES % 21.7 % (18.0-39.1); MEAN CORPUSCULAR HEMOGLOBIN 31.5 pg (28-32); MEAN CORPUSCULAR HGB CONC 32.2 g/dL (31-35); MEAN CORPUSCULAR VOLUME 97.7 fL (81-99); MONOCYTES # (AUTO) 0.9 (0.2-0.8); MONOCYTES % 11.6 % (4.4-11.3); NEUTROPHILS # (AUTO) 4.5 (2.1-6.9); PLATELET COUNT 229 x10e3/uL (140-360); RED BLOOD COUNT 3.11 x10e6/uL (3.6-5.1)
[2022-06-27 06:00] LABS: ANION GAP 12.7 mmol/L (8-16); CALCIUM 8.7 mg/dL (8.4-10.2); CREATININE, SERUM 0.77 mg/dL (0.57-1.11); POTASSIUM 3.7 mmol/L (3.5-5.1)
[2022-06-27] MEDS: PANTOPRAZOLE SOD 40 MG TABEC PO SCH (08:36)
[2022-06-27] MEDS: SERTRALINE HCL 50 MG TAB PO SCH (08:36)
[2022-06-27] MEDS: SIMVASTATIN 40 MG TAB PO SCH (08:36)
[2022-06-27] MEDS: Ampicillin INJ 2 GM in SODIUM CHLORIDE 0.9% 100 ML IV SCH ×2 (12:13→17:30)
[2022-06-27] MEDS: MEMANTINE 10 MG TAB PO SCH (19:59)
[2022-06-27] MEDS: QUETIAPINE FUMARATE 100 MG TAB PO SCH (19:59)
[2022-06-28] VITALS (8 sets, daily range): BP systolic 106–184; BP diastolic 49–85
[2022-06-28] MEDS: Ampicillin INJ 2 GM in SODIUM CHLORIDE 0.9% 100 ML IV SCH ×5 (00:49→23:14)
[2022-06-28] MEDS: SODIUM CHLORIDE 0.45% 1,000 ML IV SCH ×2 (06:05→21:11)
[2022-06-28] MEDS: SERTRALINE HCL 50 MG TAB PO SCH (09:40)
[2022-06-28] MEDS: SIMVASTATIN 40 MG TAB PO SCH (09:40)
[2022-06-28] MEDS: PANTOPRAZOLE SOD 40 MG TABEC PO SCH (09:40)
[2022-06-28] MEDS: QUETIAPINE FUMARATE 100 MG TAB PO SCH (21:10)
[2022-06-28] MEDS: MEMANTINE 10 MG TAB PO SCH (21:10)
[2022-06-29 01:53] VITALS: BP 122/49
[2022-06-29 04:00] VITALS: BP 124/49
[2022-06-29] MEDS: Ampicillin INJ 2 GM in SODIUM CHLORIDE 0.9% 100 ML IV SCH ×3 (05:24→16:20)
[2022-06-29] MEDS: SODIUM CHLORIDE 0.45% 1,000 ML IV SCH (05:24)
[2022-06-29 07:37] VITALS: BP 146/85
[2022-06-29] MEDS: SERTRALINE HCL 50 MG TAB PO SCH (08:42)
[2022-06-29] MEDS: PANTOPRAZOLE SOD 40 MG TABEC PO SCH (08:42)
[2022-06-29 11:12] VITALS: BP 141/72
[2022-06-29 15:47] VITALS: BP 139/59
[2022-06-29] MEDS ORDERED: LEVOFLOXACIN250 MG PO (18:37)
[2022-06-29] MEDS ORDERED: NITROFURANTOIN100 MG PO (18:37)
[2022-06-29] MEDS ORDERED: SEROQUEL50 MG PO (18:40)
[2022-06-29] MEDS: MEMANTINE 10 MG TAB PO SCH (20:58)
[2022-06-29] MEDS ORDERED: QUETIAPINE FUMARATE 25 MG TAB PO SCH (21:00)
[2022-06-29] MEDS ORDERED: SIMVASTATIN 20 MG TAB PO SCH (21:00)
[2022-06-30] MEDS ORDERED: BALSAM PERU/CASTOR OIL 60 GM OINT...G. TP SCH (09:00)
== END 2022-06-29 21:58 | disposition home health service (06) | DRG 689 ==
LOC: ER 11:57 → ERHOLD 14:42 → MED/SURG2 16:38
PROVIDERS: ADMIT Internal Medicine; ATTEND Internal Medicine
PROC: 02HV33Z Insertion of Infusion Device into Superior Vena Cava, Percutaneous Approach (ICD-10-PCS; principal; 2022-06-25)
DX: N39.0 Urinary tract infection, site not specified (principal); G93.41 Metabolic encephalopathy; N17.9 Acute kidney failure, unspecified; E87.0 Hyperosmolality and hypernatremia; F03.90 Unspecified dementia, unspecified severity, without behavioral disturbance, psychotic disturbance, mood disturbance, and anxiety; K21.9 Gastro-esophageal reflux disease without esophagitis; F39 Unspecified mood [affective] disorder; Z20.822 Contact with and (suspected) exposure to COVID-19; B96.20 Unspecified Escherichia coli [E. coli] as the cause of diseases classified elsewhere; B95.2 Enterococcus as the cause of diseases classified elsewhere; B96.5 Pseudomonas (aeruginosa) (mallei) (pseudomallei) as the cause of diseases classified elsewhere; Z86.73 Personal history of transient ischemic attack (TIA), and cerebral infarction without residual deficits; R62.7 Adult failure to thrive; Z68.26 Body mass index [BMI] 26.0-26.9, adult; L89.152 Pressure ulcer of sacral region, stage 2
CPT/HCPCS: 36415; 70450; 71045; 80048; 80053; 81001; 83605; 83735; 84100; 84295; 84484; 85025; 87040; 87086; 87186; 93005; 99252; 99285; J0692; J0696; J7030; J7050; J7121

== ENCOUNTER 2022-07-27 16:19 | Emergency (ER) | payer MEDICARE ==
[~2022-07-27] VITALS: Ht 162.6 cm; Wt 63.5 kg
[~2022-07-27 16:19] MED LIST changes: +LEVOFLOXACIN250 MG PO; +NITROFURANTOIN100 MG PO; +SEROQUEL50 MG PO
[2022-07-27] MEDS ORDERED: SODIUM CHLORIDE 0.9% 1000ML 1,000 ML IV ONE (16:45)
[2022-07-27 17:00] LABS: BASOPHILS % 0.6 % (0.0-1.0); EOSINOPHILS # (AUTO) 0.3 (0.0-0.4); EOSINOPHILS % 4.4 % (0.0-6.0); HEMATOCRIT 35.8 % (34.2-44.1); HEMOGLOBIN 11.4 g/dL (12.0-16.0); LYMPHOCYTES # (AUTO) 2.2 (1.0-3.2); LYMPHOCYTES % 30.1 % (18.0-39.1); MEAN CORPUSCULAR HEMOGLOBIN 32.2 pg (28-32); MEAN CORPUSCULAR HGB CONC 31.8 g/dL (31-35); MEAN CORPUSCULAR VOLUME 101.1 fL (81-99); MONOCYTES # (AUTO) 0.7 (0.2-0.8); MONOCYTES % 9.6 % (4.4-11.3); PLATELET COUNT 244 x10e3/uL (140-360); RED BLOOD COUNT 3.54 x10e6/uL (3.6-5.1); RED CELL DISTRIBUTION WIDTH 13.6 % (11.7-14.4)
[2022-07-27 17:16] LABS: ALBUMIN 3.2 g/dL (3.5-5.0); ALBUMIN/GLOBULIN RATIO 1.1 (0.8-2.0); ANION GAP 13.6 mmol/L (8-16); CALCIUM 9.3 mg/dL (8.4-10.2); CREATININE, SERUM 0.82 mg/dL (0.57-1.11); POTASSIUM 4.6 mmol/L (3.5-5.1)
[2022-07-27 17:36] LABS: CLARITY,URINE SL CLOUDY (CLEAR); COLOR,URINE YELLOW (YELLOW); KETONES,URINE NEGATIVE (NEGATIVE); LEUKOCYTE ESTERASE ,URINE SMALL (NEGATIVE); NITRITE,URINE NEGATIVE (NEGATIVE); PROTEIN,URINE DIPSTICK TRACE (NEGATIVE); URINE UROBILINOGEN 0.2 mg/dL (0.2 - 1)
[2022-07-27 17:48] LABS: BACTERIA,URINE FEW /HPF; EPITHELIAL CELLS,URINE RARE /LPF; RBC,URINE 0-5 /HPF (0-5)
[2022-07-27 17:49] LABS: YEAST,URINE MODERATE
[2022-07-27] MEDS ORDERED: CEFDINIR300 MG PO (20:03)
== END 2022-07-27 21:25 | disposition home or self-care (01) ==
LOC: ER 16:25
DX: R53.1 Weakness (principal); N39.0 Urinary tract infection, site not specified; E86.0 Dehydration; Z20.822 Contact with and (suspected) exposure to COVID-19; K21.9 Gastro-esophageal reflux disease without esophagitis; E78.5 Hyperlipidemia, unspecified; F03.90 Unspecified dementia, unspecified severity, without behavioral disturbance, psychotic disturbance, mood disturbance, and anxiety
CPT/HCPCS: 36415; 51700; 70450; 71045; 80053; 81001; 83605; 84484; 85025; 87040; 87086; 93005; 99284; J0696; J7030; U0002